=== PATIENT | male | born 1960 | race Hispanic/Latino ===

== ENCOUNTER → 2023-11-03 17:11 | Outpatient (CLI) | payer BC, SELFPAY ==
--- NOTE | 2023-11-03 17:12 | DI.US.S_ITS ---
PROCEDURE: US THYROID INDICATIONS: Nontoxic single thyroid nodule TECHNIQUE: Real-time scanning was performed of the thyroid gland, with image documentation. COMPARISON: None. FINDINGS: Thyroid: Right lobe measures 5.5 x 1.7 x 2.1 cm. Left lobe measures 4.5 x 1.0 x 1.8 cm. Isthmus is 0.4 cm thick. Echotexture is homogeneous. Multiple small nodules measuring between 3 and 5 mm. No nodules medial requirement for follow-up. IMPRESSION: Multiple small nodules measuring less than 5 mm which do not require follow-up. ACR TI-RADS definitions and recommendations: TI-RADS 1 (benign): 0 points. FNA not needed. TI-RADS 2 (not suspicious): 2 points. FNA not needed. TI-RADS 3 (mildly suspicious): 3 points. * FNA if 2.5 cm or larger, follow up if 1.5 cm or larger (at 1, 3, and 5 years). TI-RADS 4 (moderately suspicious): 4-6 points. * FNA if 1.5 cm or larger, follow up if 1 cm or larger (at 1, 2, 3, and 5 years). TI-RADS 5 (highly suspicious): 7 points or more. * FNA if 1 cm or larger, follow up if 0.5 cm or larger (every year for 5 years). Dictated by: Rafita Guallpa M.D. on 11/03/2023 at 21:31 Approved by: Rafita Guallpa M.D. on 11/03/2023 at 21:32
== END ==
PROVIDERS: Referring Provider Internal Medicine; Visit Provider Internal Medicine
DX: E04.2 Nontoxic multinodular goiter (principal)
CPT/HCPCS: 76536